=== PATIENT | female | born 1975 | race Caucasian/White ===

== ENCOUNTER 2018-04-26 08:59 | Emergency (ER) | payer MEDICAID ==
[2018-04-26] MEDS: ACETAMINOPHEN 500 MG TAB PO (09:53)
[2018-04-26] MEDS: DIPHENHYDRAMINE 50 MG INJ IV ×2 (11:03→11:06)
[2018-04-26] MEDS: METOCLOPRAMIDE 10 MG INJ IV ×2 (11:04→11:06)
[2018-04-26] MEDS: SOD CHLORIDE 0.9% 1,000 ML IV ×2 (11:04→11:06)
== END 2018-04-26 11:28 | disposition home or self-care (01) ==
LOC: E/R 08:59
DX: I16.0 Hypertensive urgency (principal); R40.2142 Coma scale, eyes open, spontaneous, at arrival to emergency department; I10 Essential (primary) hypertension; R40.2252 Coma scale, best verbal response, oriented, at arrival to emergency department; R40.2362 Coma scale, best motor response, obeys commands, at arrival to emergency department
CPT/HCPCS: 70450; 81025; 96374; 96375; 99285-25